=== PATIENT | female | born 1945 | race Caucasian/White ===

== ENCOUNTER 2023-03-05 11:26 | Observation (INO) | payer MEDICARE ==
[2023-03-05] MEDS ORDERED: SODIUM CHLORIDE 0.9% 1,000 ML IV STA (12:41)
[2023-03-05] MEDS ORDERED: LIDOCAINE 5% PATCH TOPICAL STA (12:43)
--- NOTE | 2023-03-05 13:00 | ED ---
General Adult HPI - General Chief complaint: Chest Pain Stated complaint: pain from ear to ribs on left side Time Seen by Provider: 03/05/23 12:13 Source: patient, family, RN notes reviewed, old records reviewed Mode of arrival: EMS Limitations: no limitations - History of Present Illness Initial comments: Patient is a 77-year-old female presents emergency Department complaining of chest pain for multiple weeks. Patient describes the pain as left-sided chest pain that is intermittent. Originally describes the pain as sharp and stabbing. States it is mostly over the left inferior rib. Worse on deep inspiration. However states that intermittently she'll also get left-sided chest pain that is associated with some left shoulder pain as well as left-sided neck pain. States this happens him was on a daily basis for the last 2-3 weeks. Originally attributed it to holding her phone and a weird angle multiple weeks ago but is uncertain if this is the cause. Does not follow up with her physician. Presents for further evaluation. Denies any history of cardiac disease. Denies any lower extremity edema. No lower extremity pain. No history of blood clots. Endorses shortness of breath but states it is because on deep expiration she does have left-sided chest pain on the rib in the anterior mid clavicular line inferiorly. Presents for further evaluation at this time. Denies any fevers, chills, cough, diaphoresis, nausea, vomiting, abdominal pain. - Related Data Home Medications Medication Instructions Recorded Confirmed No Known Home Medications 03/05/23 03/05/23 Allergies Allergy/AdvReac Type Severity Reaction Status Date / Time No Known Allergies Allergy Verified 03/05/23 13:00 Review of Systems ROS Statement: Those systems with pertinent positive or pertinent negative responses have been documented in the HPI. Review of Systems: CONST: Denies fever EYES: Denies blurry vision ENT: Denies nasal congestion C/V: Endorses chest pain/rib pain RESP: Denies shortness of breath GI: Denies abdominal pain : Denies dysuria SKIN: Denies rash. MSK: Denies joint pain. NEURO: Denies headache ROS Other: All systems not noted in ROS Statement are negative. Past Medical History Past Medical History: No Reported History History of Any Multi-Drug Resistant Organisms: None Reported Past Surgical History: No Surgical Hx Reported Past Psychological History: No Psychological Hx Reported Smoking Status: Never smoker Past Alcohol Use History: None Reported Past Drug Use History: None Reported General Exam - General Exam Comments Initial Comments: General: Appears in no acute distress. HEAD: Normal with no signs of head trauma. EYES: PERRLA, EOMI, conjunctiva normal, no discharge. ENT: Hearing grossly intact, normal oropharynx. RESPIRATORY: Clear breath sounds bilaterally. No wheezes, rales, or rhonchi. No hypoxia. No increased work of breathing. C/V: Regular rate and rhythm. S1 and S2 auscultated, no edema, peripheral pulses 2+ and intact throughout ABD: Abd is soft, nontender, nondistended EXT: Normal range of motion, no obvious deformity. Patient does have reproducible chest pain over the left inferior ribs in the midclavicular line. No obvious deformity. No flail chest. SKIN: No rashes or lesions observed on exposed skin. NEURO: Alert and oriented 4. Limitations: no limitations Course Vital Signs 03/05/23 03/05/23 03/05/23 12:07 12:29 12:55 Temperature 98.3 F Pulse Rate 74 71 68 Respiratory 18 16 17 Rate Blood Pressure 179/80 175/85 139/70 O2 Sat by Pulse 96 96 96 Oximetry Medical Decision Making - Medical Decision Making Was pt. sent in by a medical professional or institution (, PA, INSTRUCTOR KNITTING, urgent care, hospital, or shelter...) When possible be specific @ -No Did you speak to anyone other than the patient for history (EMS, parent, family, police, friend...)? What history was obtained from this source @ -No Did you review nursing and triage notes (agree or disagree)? Why? @ -I reviewed and agree with nursing and triage notes Were old charts reviewed (outside hosp., previous admission, EMS record, old EKG, old radiological studies, urgent care reports/EKG's, shelter records)? Report findings @ -Old charts reviewed. Differential Diagnosis (chest pain, altered mental status, abdominal pain women, abdominal pain men, vaginal bleeding, weakness, fever, dyspnea, syncope, headache, dizziness, GI bleed, back pain, seizure, CVA, palpatations, mental health, musculoskeletal)? @ -Differential Chest Pain: Stable Angina, Unstable Angina, STEMI, NSTEMI Aortic Dissection, Pneumothorax, Musculoskeletal, Esophageal Spasm GERD, Cholecystitis, Pancreatitis, Zoster, this is not meant to be an all-inclusive list. EKG interpreted by me (3pts min.). @ -As above X-rays interpreted by me (1pt min.). @ -Chest x-ray reveals possible mild pulmonary vascular congestion as well as atelectasis versus infiltrate in the left lower lobe. Favor atelectasis as she has no upper respiratory complaints. CT interpreted by me (1pt min.). @ -CT PE positive for bilateral pulmonary emboli in the lower lobes. No significant right heart strain. U/S interpreted by me (1pt. min.). @ -None done What testing was considered but not performed or refused? (CT, X-rays, U/S, labs)? Why? @ -None What meds were considered but not given or refused? Why? @ -None Did you discuss the management of the patient with other professionals (professionals i.e. , PA, INSTRUCTOR K[employer]ITTING, lab, RT, psych nurse, social media designer, timber estimator, teacher, project control officer, correctional casework specialist)? Give summary @ -Spoke with [facility] Who Was in Agreement with the Plan. Spoke with Dr. Hamilton who evaluated the patient at bedside and was in agreement with the plan. Was smoking cessation discussed for >3mins.? @ -No Was critical care preformed (if so, how long)? @ -yes, 35 m42 Were there social determinants of health that impacted care today? How? (Homelessness, low income, unemployed, alcoholism, drug addiction, transportation, low edu. Level, literacy, decrease access to med. care, long-term, rehab)? @ -No Was there de-escalation of care discussed even if they declined (Discuss DNR or withdrawal of care, Hospice)? DNR status @ -No What co-morbidities impacted this encounter? (DM, HTN, Smoking, COPD, CAD, Cancer, CVA, ARF, Chemo, Hep., AIDS, mental health diagnosis, sleep apnea, morbid obesity)? @ -None Was patient admitted / discharged? Hospital course, mention meds given and route, prescriptions, significant lab abnormalities, going to OR and other per tinent info. @ -Based on patient's presentation and physical exam, I'm concerned for cardiac etiology for her current symptoms. We will obtain cardiopulmonary labs. EKG and chest x-ray will also be obtained. Vital signs within acceptable limits. She is slightly hypertensive. She was in agreement this plan. Currently she does not have the chest, neck, shoulder pain but does have the rib pain. EKG showed no signs of ischemia.Chest x-ray shows possible left lower lobe pne umonia but it has no upper as well as her symptoms and therefore more likely to be atelectasis. Labs are remarkable for a BNP within normal limits for the patient's age, and undetectable troponin, an elevated d-dimer of 6. I updated the patient. Symptoms are unchanged. We will obtain a CT PE for her pleuritic chest pain. She was in agreement with this plan. CT PE positive for bilateral pulmonary emboli. After the patient. She started on heparin. No obvious evidence of right heart strain this time. Echo will be ordered. Patient is admitted to [facility]. I consulted pulmonology Dr. Hamilton and notified him of the consult. Echo and duplex is ordered. Spoke with Dr. squires who accepted the patient. Undiagnosed new problem with uncertain prognosis? @ -No Drug Therapy requiring intensive monitoring for toxicity (Heparin, Nitro, Insulin, Cardizem)? @ -Heparin Were any procedures done? @ -No Diagnosis/symptom? @ -Atypical pleuritic chest pain, bilateral PE Acute, or Chronic, or Acute on Chronic? @ -Acute Uncomplicated (without systemic symptoms) or Complicated (systemic symptoms)? @ -Complicated Side effects of treatment? @ -none Exacerbation, Progression, or Severe Exacerbation] @ -no Poses a threat to life or bodily function? @ -Yes - Lab Data Result diagrams: 03/05/23 12:52 03/05/23 12:52 Lab Results 03/05/23 03/05/23 03/05/23 Range/Units 12:52 12:52 12:52 WBC 6.6 (3.8-10.6) k/uL RBC 4.41 (3.80-5.40) m/uL Hgb 12.0 (11.4-16.0) gm/dL Hct 37.9 (34.0-46.0) % MCV 85.9 (80.0-100.0) fL MCH 27.3 (25.0-35.0) pg MCHC 31.7 (31.0-37.0) g/dL RDW 13.4 (11.5-15.5) % Plt Count 537 H (150-450) k/uL MPV 9.6 Neutrophils % 71 % Lymphocytes % 20 % Monocytes % 5 % Eosinophils % 2 % Basophils % 0 % Neutrophils # 4.7 (1.3-7.7) k/uL Lymphocytes # 1.3 (1.0-4.8) k/uL Monocytes # 0.3 (0-1.0) k/uL Eosinophils # 0.2 (0-0.7) k/uL Basophils # 0.0 (0-0.2) k/uL PT 10.3 (10.0-12.5) sec INR 0.9 (<1.2) APTT 23.3 (22.0-30.0) sec D-Dimer 6.79 H (<0.60) mg/L FEU Sodium 137 (137-145) mmol/L Potassium 4.5 (3.5-5.1) mmol/L Chloride 103 (98-107) mmol/L Carbon Dioxide 22 (22-30) mmol/L Anion Gap 12 mmol/L BUN 11 (7-17) mg/dL Creatinine 0.53 (0.52-1.04) mg/dL Est GFR (CKD-EPI)AfAm >90 (>60 ml/min/1.73 sqM) Est GFR (CKD-EPI)NonAf >90 (>60 ml/min/1.73 sqM) Glucose 87 (74-99) mg/dL Calcium 9.5 (8.4-10.2) mg/dL Magnesium 2.2 (1.6-2.3) mg/dL Total Bilirubin 0.5 (0.2-1.3) mg/dL AST 24 (14-36) U/L ALT 17 (4-34) U/L Alkaline Phosphatase 85 (38-126) U/L Troponin I (0.000-0.034) ng/mL NT-Pro-B Natriuret Pep 416 pg/mL Total Protein 6.8 (6.3-8.2) g/dL Albumin 3.9 (3.5-5.0) g/dL Lipase 99 (23-300) U/L 03/05/23 Range/Units 12:52 WBC (3.8-10.6) k/uL RBC (3.80-5.40) m/uL Hgb (11.4-16.0) gm/dL Hct (34.0-46.0) % MCV (80.0-100.0) fL MCH (25.0-35.0) pg MCHC (31.0-37.0) g/dL RDW (11.5-15.5) % Plt Count (150-450) k/uL MPV Neutrophils % % Lymphocytes % % Monocytes % % Eosinophils % % Basophils % % Neutrophils # (1.3-7.7) k/uL Lymphocytes # (1.0-4.8) k/uL Monocytes # (0-1.0) k/uL Eosinophils # (0-0.7) k/uL Basophils # (0-0.2) k/uL PT (10.0-12.5) sec INR (<1.2) APTT (22.0-30.0) sec D-Dimer (<0.60) mg/L FEU Sodium (137-145) mmol/L Potassium (3.5-5.1) mmol/L Chloride (98-107) mmol/L Carbon Dioxide (22-30) mmol/L Anion Gap mmol/L BUN (7-17) mg/dL Creatinine (0.52-1.04) mg/dL Est GFR (CKD-EPI)AfAm (>60 ml/min/1.73 sqM) Est GFR (CKD-EPI)NonAf (>60 ml/min/1.73 sqM) Glucose (74-99) mg/dL Calcium (8.4-10.2) mg/dL Magnesium (1.6-2.3) mg/dL Total Bilirubin (0.2-1.3) mg/dL AST (14-36) U/L ALT (4-34) U/L Alkaline Phosphatase (38-126) U/L Troponin I <0.012 (0.000-0.034) ng/mL NT-Pro-B Natriuret Pep pg/mL Total Protein (6.3-8.2) g/dL Albumin (3.5-5.0) g/dL Lipase (23-300) U/L - EKG Data -: EKG Interpreted by Me EKG Comments: 12-lead Electrocardiogram Interpretation Note EKG was reviewed and interpreted by myself. 12-lead ECG performed at 1205 is interpreted by me as revealing normal sinus rhythm at a rate of 68 beats per minute. [place] is normal. CA intervals 147 ms. QRS duration is 93 ms. QTC is 398 ms.. There were no ST or T wave abnormalities to suggest myocardial ischemia or injury. R wave progression across the precordium was satisfactory. By my interpretation this EKG is non-diagnostic for acute ischemia. Critical Care Time Critical Care Time: Yes Total Critical Care Time: 42 Disposition Clinical Impression: Pleuritic chest pain, Bilateral pulmonary embolism Disposition: ADMITTED IP TO THIS HOSP Condition: Serious Referrals: None,Stated [Primary Care Provider] - 1-2 days Time of Disposition: 15:01
[2023-03-05 13:06] LABS: Basophils % (A) 0 %; Eosinophils # (A) 0.2 k/uL (0-0.7); Eosinophils % (A) 2 %; HCT 37.9 % (34.0-46.0); Lymphocytes # (A) 1.3 k/uL (1.0-4.8); Lymphocytes % (A) 20 %; MCH 27.3 pg (25.0-35.0); MCHC 31.7 g/dL (31.0-37.0); MCV 85.9 fL (80.0-100.0); Mean Platelet Volume 9.6; Monocytes # (A) 0.3 k/uL (0-1.0); Monocytes % (A) 5 %; Neutrophils # (A) 4.7 k/uL (1.3-7.7); Neutrophils % (A) 71 %; Platelet Count 537 k/uL (150-450); RBC 4.41 m/uL (3.80-5.40); RDW 13.4 % (11.5-15.5); WBC 6.6 k/uL (3.8-10.6)
[2023-03-05 13:16] LABS: ALT 17 U/L (4-34); AST 24 U/L (14-36); African American GFR (CKD) >90 (>60 ml/min/1.73 sqM); Albumin 3.9 g/dL (3.5-5.0); Alkaline Phosphatase 85 U/L (38-126); Anion Gap 12 mmol/L; Blood Urea Nitrogen 11 mg/dL (7-17); Calcium 9.5 mg/dL (8.4-10.2); Carbon Dioxide 22 mmol/L (22-30); Chloride 103 mmol/L (98-107); Glucose 87 mg/dL (74-99); Lipase 99 U/L (23-300); Magnesium 2.2 mg/dL (1.6-2.3); Non-African American GFR(CKD) >90 (>60 ml/min/1.73 sqM); Potassium 4.5 mmol/L (3.5-5.1); Sodium 137 mmol/L (137-145); Total Bilirubin 0.5 mg/dL (0.2-1.3); Total Protein 6.8 g/dL (6.3-8.2)
[2023-03-05 13:25] LABS: NT-Pro-B-Type Natriuretic Pept 416 pg/mL
[2023-03-05 13:29] LABS: INR 0.9 (<1.2); Partial Thromboplastin Time 23.3 sec (22.0-30.0); Prothrombin Time 10.3 sec (10.0-12.5)
--- NOTE | 2023-03-05 13:45 | XR ---
EXAMINATION TYPE: XR chest 2V DATE OF EXAM: 03/05/2023 COMPARISON: NONE HISTORY: Shortness of breath TECHNIQUE: Frontal and lateral views of the chest are obtained. FINDINGS: Scattered senescent parenchymal changes noted. Hyperinflation compatible with COPD. No evidence for infiltrate. No evidence for atelectasis. Mild cardiomegaly with pulmonary venous congestion and tiny effusion suggested on the lateral project ion. Increased opacity left lower lobe laterally may reflect atelectasis or infiltrate. Mediastinal structures are stable and grossly unremarkable. No evidence for hilar prominence. Degenerative changes dorsal spine. IMPRESSION: 1. Mild cardiomegaly with pulmonary venous congestion and tiny effusion suggested on the lateral proj ection. Increased opacity left lower lobe laterally may reflect atelectasis or infiltrate.
[2023-03-05] MEDS ORDERED: HEPARIN SODIUM 1,000 UN/ML (10ML VL) IV ONE (14:48)
[2023-03-05] MEDS ORDERED: HEPARIN SODIUM 1,000 UN/ML (10ML VL) IV PRN (14:48)
--- NOTE | 2023-03-05 14:54 | CT ---
EXAMINATION TYPE: CT chest angio for PE CT DLP: 213.2 mGycm, Automated exposure control for dose reduction was used. DATE OF EXAM: 03/05/2023 2:43 PM COMPARISON: Chest radiograph from same day. . CLINICAL INDICATION:Female, 77 years old with history of eval for PE; pe shortness of breath. Elevate d d-dimer. TECHNIQUE/CONTRAST: CTA scan of the thorax is performed with IV Contrast, patient injected with 100 mL of Isovue 370, MIP images are created and reviewed these are created on a separate workstation.. FINDINGS: Pulmonary Artery: Filling defects within the left lower lobe 6 lobar and segmental and subsegmental b ranches. Additionally there are filling defects within the right lower lung pulmonary subsegmental br anches. The pulmonary trunk is dilated up to 3.5 cm. Mild reflux of contrast is seen within the IVC. Lungs/Pleura: No evidence of focal consolidation or pneumothorax. Trace bilateral pleural effusions. Convex opacities in the lung bases. Some consolidation in the left lung base. Airway: Large airways are patent. Heart: Heart is mildly enlarged for size. Vasculature: No evidence of aortic aneurysm. Moderate to large hiatal hernia. Mediastinum: No gross evidence of adenopathy. Musculoskeletal: No acute osseous abnormalities Soft Tissues: Unremarkable. Lower neck: No significant findings. Upper Abdomen: No significant findings. IMPRESSION: 1. Acute bilateral lower lobe pulmonary emboli. No evidence of right heart strain. Mild pulmonary hy pertension with reflux of contrast suggests may be minimal right heart strain. Correlate with serum m arkers. 2. Groundglass and consolidation changes in the lung bases particularly the lingula and left lower l obe correlate for superimposed infection. 3. Moderate to large hiatal hernia. 4. Trace bilateral pleural effusions. Findings communicated to Dr. Orlando Medrano MD on 03/05/2023 2:[address] Duy Faulkner.
[2023-03-05] MEDS ORDERED: HEPARIN SOD,PORK IN 0.45% NACL 25,000 UNIT in 0.45% NACL 1 250ML.BAG IV SCH (15:00)
[2023-03-05] MEDS ORDERED: NALOXONE 0.4 MG/ML 1 ML VIAL IV PRN (15:13)
[2023-03-05] MEDS ORDERED: ASPIRIN 81 MG PO STA (15:17)
[2023-03-05] MEDS: SODIUM CHLORIDE 0.9% 1,000 ML IV SCH (15:45)
--- NOTE | 2023-03-05 15:52 | US ---
EXAMINATION TYPE: US venous doppler duplex LE DATE OF EXAM: 03/05/2023 3:05 PM COMPARISON: NONE CLINICAL INDICATION: Female, 77 years old with history of chest pain x 2 weeks, PE seen on recent CT; SIDE PERFORMED: Bilateral TECHNIQUE: The lower extremity deep venous system is examined utilizing real time linear array sonog jennifer with graded compression, doppler sonography and color-flow sonography. VESSELS IMAGED: Common Femoral Vein Deep Femoral Vein Greater Saphenous Vein * Femoral Vein Popliteal Vein Small Saphenous Vein * Proximal Calf Veins (* superficial vessels) Right Leg: Negative for DVT Left Leg: Negative for DVT IMPRESSION: Grayscale, color doppler, spectral doppler imaging performed of the deep veins of the lo wer extremities. There is normal flow, compressibility, vascular waveforms.
--- NOTE | 2023-03-05 16:37 | P.HPIM ---
History of Present Illness H&P Date: 03/05/23 Patient is a 77-year-old female with no significant past medical history presenting with 2 weeks of bilateral lower rib pain. She claims that this started all of a sudden. Initially her pain was more pleuritic and sharp, and now it's mostly resolved. She denies any fevers, chills, abdominal pain, nausea, vomiting, urinary or bowel complaints. She does not see any physicians, and was prompted by her sister to come to the ER. She denies any any recent prolonged immobilization or travel history. She denies ever getting any outpatient malignancy screening. Her mother and her son also had history of DVT/PE. No close family history of cancer. In the ED, temperature was 98.3, pulse 74, respiratory rate 18, blood pressure 179/80, saturating at 96% on room air. WBC 6.6, hemoglobin 12, platelet 587, d- dimer 6.79, creatinine 0.53, troponin negative, proBNP 400. Chest x-ray independently interpreted shows left lower lobe opacity and interstitial opacities. EKG independently interpreted shows normal sinus rhythm. Chest CTA shows acute bilateral lower lobe pulmonary emboli with normal right heart strain. Left lower lobe consolidation consistent with possible infection. Moderate to large hiatal hernia. Trace bilateral pleural effusions. Pulmonology consulted. Patient being admitted for bilateral pulmonary emboli, on heparin drip. Case discussed with ED physician. Pertinent positives and negatives as discussed in HPI, a complete review of systems was performed and all other systems are negative. Patient seen and examined at bedside. Vital signs reviewed General: nontoxic, no distress, appears at stated age Derm: warm, dry Head: atraumatic, normocephalic, symmetric Eyes: EOMI, no lid lag, anicteric sclera, pupils equal round reactive to light ENT: Nose and ears atraumatic Neck: No thyromegaly, supple Mouth: no lip lesion, mucus membranes moist Cardiovascular: S1S2 reg, no murmur, no edema Lungs: clear to auscultation bilateral, no rhonchi, no rales, no wheeze, no accessory muscle use Abdominal: soft, nontender to palpation, no guarding, no appreciable organomegaly Ext: no gross muscle atrophy, muscle strength muscle strength 5 out of 5 in all 4 extremities, no contractures Neuro: CN II-XII grossly intact Psych: Alert, oriented, appropriate affect Assessment/Plan: Acute non-massive bilateral pulmonary emboli Uncontrolled hypertension -On heparin drip, monitor aPTT and any bleeding, daily CBC -On telemetry -Cardiology and pulmonology consulted -Lower extremity Dopplers negative for DVT -echocardiogram pending -Needs outpatient cancer screening -Needs to establish with a primary care physician -If she remains hypertensive, will start on oral antihypertensives. The patient is admitted with an anticipated greater than 2 midnight stay as inpatient status for evaluation of pulmonary emboli. Surrogate decision-maker: Son CODE STATUS: Full code DVT prophylaxis: Heparin drip Anticipated discharge date: Pending clinical course Anticipated discharge place: Pending clinical course A total of 65 minutes was spent on the care of this complex patient more than 50% of the time was spent in counseling and care coordination. Past Medical History Past Medical History: No Reported History History of Any Multi-Drug Resistant Organisms: None Reported Past Surgical History: No Surgical Hx Reported Past Anesthesia/Blood Transfusion Reactions: No Reported Reaction Past Psychological History: No Psychological Hx Reported Smoking Status: Never smoker Past Alcohol Use History: None Reported Past Drug Use History: None Reported - Past Family History Son(s) History Unknown: Yes Family Medical History: Deep Vein Thrombosis (DVT) Additional Family Medical History / Comment(s): "marker in blood that is genetic" Medications and Allergies Home Medications Medication Instructions Recorded Confirmed Type No Known Home Medications 03/05/23 03/05/23 History Allergies Allergy/AdvReac Type Severity Reaction Status Date / Time No Known Allergies Allergy Verified 03/05/23 13:00 Physical Exam Vitals: Vital Signs Temp Pulse Pulse Resp BP BP Pulse Ox 03/05/23 16:37 172/77 03/05/23 16:02 98 F 77 16 184/80 95 03/05/23 15:00 82 18 150/75 94 L 03/05/23 12:55 68 17 139/70 96 03/05/23 12:29 71 16 175/85 96 03/05/23 12:07 98.3 F 74 18 179/80 96 Intake and Output 03/05/23 03/05/23 03/05/23 06:59 14:59 22:59 Other: Weight 63.503 kg 63.503 kg Results CBC & Chem 7: 03/05/23 12:52 03/05/23 12:52 Labs: Abnormal Lab Results - Last 24 Hours (Table) 03/05/23 03/05/23 Range/Units 12:52 12:52 Plt Count 537 H (150-450) k/uL D-Dimer 6.79 H (<0.60) mg/L FEU Thrombosis Risk Factor Assmnt - Choose All That Apply Each Risk Factor Represents 3 Points: Age 75 years or older Thrombosis Risk Factor Assessment Total Risk Factor Score: 3 Thrombosis Risk Factor Assessment Level: Moderate Risk
--- NOTE | 2023-03-05 17:12 | P.CNPUL ---
History of Present Illness Consult date: 03/05/23 Reason for consult: pulmonary embolism History of present illness: 77-year-old female patient, presented to the emergency department with 2 week history of pleuritic left-sided chest pain. This was a of a sudden onset that has been ongoing for the past 2 weeks of progressive worsening. For that reason, she came into the emergency department. No hemoptysis. No syncope. No fever. No chills. No night sweats. In the emergency department, the patient was found to have a d-dimer of 6.7. Following that, check x-ray was done that showed some left lung opacity/interstitial. EKG was sinus. CT angiogram of the chest was done and showed bilateral lower lobe pulmonary embolism. No evidence of any RV strain. There is also a is a left lung consolidation probably related to an early infarction. The patient also had a moderate degree of hiatal hernia. The patient is hemodynamically stable. She is currently on oxygen at room air. No significant tachycardia. No hypotension. No swelling in lower extremities. No trips such as low trips or airplane trips. Her son has been diagnosed having a DVT and he has been also tested genetically and he has been diagnosed having an underlying hypercoagulable state. Nevertheless, the patient herself has never been count of any previous DVT or pulmonary embolism. She has not seen a physician for many years. She denies having any other medical problems. Ramon malignancy. No recent surgeries. She states that she is quite active. Review of Systems Constitutional: Reports as per HPI Eyes: denies as per HPI, denies blurred vision, denies bulging eye, denies decreased vision, denies diplopia, denies discharge, denies dry eye, denies irritation, denies itching, denies pain, denies photophobia, denies loss of peripheral vision, denies loss of vision, denies tunnel vision/blind spots Ears: deny: decreased hearing, ear discharge, earache, tinnitus Ears, nose, mouth and throat: Reports as per HPI Breasts: absent: as per HPI, change in shape, gynecomastia, masses, nipple discharge, pain, skin changes, swelling Cardiovascular: Reports chest pain Respiratory: Reports as per HPI, Reports pleurisy Gastrointestinal: Reports as per HPI Genitourinary: Reports as per HPI Menstruation: Reports as per HPI Musculoskeletal: Reports as per HPI Musculoskeletal: absent: ankle pain, ankle stiffness, ankle swelling Integumentary: Reports as per HPI Neurological: Reports as per HPI Psychiatric: Reports as per HPI Endocrine: Reports as per HPI Hematologic/Lymphatic: Reports as per HPI Allergic/Immunologic: Reports as per HPI Past Medical History Past Medical History: No Reported History History of Any Multi-Drug Resistant Organisms: None Reported Past Surgical History: No Surgical Hx Reported Past Anesthesia/Blood Transfusion Reactions: No Reported Reaction Past Psychological History: No Psychological Hx Reported Smoking Status: Never smoker Past Alcohol Use History: None Reported Past Drug Use History: None Reported - Past Family History Son(s) History Unknown: Yes Family Medical History: Deep Vein Thrombosis (DVT) Additional Family Medical History / Comment(s): "marker in blood that is gene tic" Medications and Allergies Home Medications Medication Instructions Recorded Confirmed Type No Known Home Medications 03/05/23 03/05/23 History Allergies Allergy/AdvReac Type Severity Reaction Status Date / Time No Known Allergies Allergy Verified 03/05/23 13:00 Physical Exam Vitals: Vital Signs Temp Pulse Pulse Resp BP BP Pulse Ox 03/05/23 16:37 172/77 03/05/23 16:02 98 F 77 16 184/80 95 03/05/23 15:00 82 18 150/75 94 L 03/05/23 12:55 68 17 139/70 96 03/05/23 12:29 71 16 175/85 96 03/05/23 12:07 98.3 F 74 18 179/80 96 Intake and Output 03/05/23 03/05/23 03/05/23 06:59 14:59 22:59 Other: Weight 63.503 kg 63.503 kg Gen. appearance the patient is calm and comfortable in no acute distress currently on room air oxygen The patient appeared well nourished and normally developed. Vital signs as documented. Head exam is unremarkable. No scleral icterus or corneal arcus noted. Neck is without jugular venous distension, thyromegaly, or carotid bruits. Carotid upstrokes are brisk bilaterally. Lungs are clear to auscultation and percussion. Cardiac exam reveals the PMI to be normally sized and situated. Rhythm is regular. First and second heart sounds normal. No murmurs, rubs or gallops. Abdominal exam reveals normal bowel sounds, no masses, no organomegaly and no aortic enlargement. Extremities are nonedematous and both femoral and pedal pulses are normal.Examination of the skin revealed no evidence of significant rashes, suspicious appearing nevi or other concerning lesions.Neurologically, the patient is awake and alert and the patient does not have any focal neurological deficit. Cranial nerves are essentially intact. Results - Laboratory Findings CBC and BMP: 03/05/23 12:52 03/05/23 12:52 PT/INR, D-dimer PT 10.3 sec (10.0-12.5) 03/05/23 12:52 INR 0.9 (<1.2) 03/05/23 12:52 D-Dimer 6.79 mg/L FEU (<0.60) H 03/05/23 12:52 Abnormal lab findings: Abnormal Labs 03/05/23 03/05/23 12:52 12:52 Plt Count 537 H D-Dimer 6.79 H - Diagnostic Findings Chest x-ray: image reviewed CT scan - chest: image reviewed Assessment and Plan Plan: acute unprovoked bilateral pulmonary embolism with signs of pulmonary infarct involving the left lung Acute pleuritic chest pain secondary to above Acute shortness of breath secondary to above Acute hypoxic respiratory failure and the patient currently is on room air oxygen with a pulse ox of 94% Sinus tachycardia secondary to above Family history of DVT and her son with questionable hypercoagulable state Plan Obtain Doppler of the lower extremities rule out DVT. Obtain echocardiogram to evaluate for RV strain. Hemodynamically stable.*The patient IV heparin. Will likely need a hypercoagulable evaluation at the later stage. The patient was quite hasn't to stay in the hospital. She wanted to leave the hospital and be treated on outpatient basis. I made it clear that this may be potentially life- threatening condition and I was able to convince her her staying in the hospital for further treatment. We'll continue to follow. No major RV strain pattern based on CAT scan criteria. Awaiting echocardiogram.
--- NOTE | 2023-03-05 20:46 | CA ---
Transthoracic Echo Report Name: Purnima Stephenson Age: 77 Gender: F : 1945 Exam Date: 03/05/2023 18:18 Exam Location: [place] [facility] Ht (in): 63 Wt (lb): 140 Ordering Physician: Orlando Medrano MD Attending/Referring Phys: [employer] Virginia Connors RDCS Procedure CPT: Indications: PE. Eval for right heart strain Cardiac Hx: Technical Quality: Fair Contrast 1: Total Dose (mL): Contrast 2: Total Dose (mL): MEASUREMENTS (Male / Female) Normal Values 2D ECHO LV Diastolic Diameter PLAX 3.3 cm 4.2 - 5.9 / 3.9 - 5.3 cm LV Systolic Diameter PLAX 1.8 cm IVS Diastolic Thickness 1.2 cm 0.6 - 1.0 / 0.6 - 0.9 cm LVPW Diastolic Thickness 1.2 cm 0.6 - 1.0 / 0.6 - 0.9 cm LV Relative Wall Thickness 0.7 RV Internal Dim ED PLAX 3.1 cm LA Volume 59.2 cm??? 18 - 58 / 22 - 52 cm??? LA Volume Index 35.0 cm???/m??? 16 - 28 cm???/m??? M-MODE Aortic Root Diameter MM 2.9 cm LA Systolic Diameter MM 4.5 cm LA Ao Ratio MM 1.5 AV Cusp Separation MM 1.9 cm DOPPLER AV Peak Velocity 201.6 cm/s AV Peak Gradient 16.3 mmHg AV Mean Velocity 132.0 cm/s AV Mean Gradient 8.0 mmHg AV Velocity Time Integral 36.9 cm LVOT Peak Velocity 155.7 cm/s LVOT Peak Gradient 9.7 mmHg LVOT Velocity Time Integral 31.2 cm MV Area PHT 2.9 cm??? Mitral E Point Velocity 120.0 cm/s Mitral A Point Velocity 120.9 cm/s Mitral E to A Ratio 1.0 MV Deceleration Time 262.7 ms MV E' Velocity 10.0 cm/s Mitral E to MV E' Ratio 12.1 TR Peak Velocity 313.8 cm/s TR Peak Gradient 39.4 mmHg Right Ventricular Systolic Press 42.6 mmHg FINDINGS Left Ventricle Mildly increased left ventricular wall thickness. Normal left ventricular systolic function with no obvious regional wall motion abnormalities. Left ventricular cavity size normal. Left ventricular ejection fraction is estimated at 55-60 %. Right Ventricle Normal right ventricular size and function. Mild pulmonary hypertension. No Right heart strain was noted. TAPSE is 26 mm, S' is 17cm/sec. Right Atrium Normal right atrial size. Left Atrium Mildly increased left atrial volume. Mildly increased left atrial area. Mitral Valve Structurally normal mitral valve. No mitral stenosis. Trace to mild mitral regurgitation. Aortic Valve Trileaflet aortic valve. No aortic valve stenosis or regurgitation. Tricuspid Valve Structurally normal tricuspid valve. [id number] tricuspid regurgitation. Pulmonic Valve Structurally normal pulmonic valve. Trace pulmonic regurgitation. Pericardium No pericardial effusion. Aorta Normal size aortic root and proximal ascending aorta. CONCLUSIONS Left ventricular ejection fraction is estimated at 55-60 %. No obvious regional wall motion abnormalities. Mild asymmetrical septal hypertrophy Normal RV size and systolic function. RVSP estimated at 42 mmHg Mild left atrial dilatation Moderate tricuspid regurgitation and trace pulmonic regurgitation No other prior echocardiogram to compare in synapse database Previewed by: Dr Ming Weldon (Electronically Signed) Final Date: 05 March 2023 20:45
[2023-03-06 07:25] VITALS: TEMP 98.2
[2023-03-06] MEDS: SODIUM CHLORIDE 0.9% 1,000 ML IV SCH (07:55)
[2023-03-06 09:42] LABS: Basophils % (A) 1 %; Eosinophils # (A) 0.2 k/uL (0-0.7); Eosinophils % (A) 4 %; HCT 38.6 % (34.0-46.0); HGB 12.4 gm/dL (11.4-16.0); Hypochromasia Slight; Lymphocytes # (A) 1.5 k/uL (1.0-4.8); Lymphocytes % (A) 26 %; MCV 87.4 fL (80.0-100.0); Mean Platelet Volume 8.7; Monocytes # (A) 0.3 k/uL (0-1.0); Monocytes % (A) 5 %; Neutrophils # (A) 3.7 k/uL (1.3-7.7); Neutrophils % (A) 63 %; Platelet Count 538 k/uL (150-450); RBC 4.42 m/uL (3.80-5.40); RDW 13.5 % (11.5-15.5); WBC 5.9 k/uL (3.8-10.6)
[2023-03-06 10:30] LABS: African American GFR (CKD) >90 (>60 ml/min/1.73 sqM); Anion Gap 10 mmol/L; Blood Urea Nitrogen 9 mg/dL (7-17); Calcium 9.1 mg/dL (8.4-10.2); Carbon Dioxide 22 mmol/L (22-30); Chloride 108 mmol/L (98-107); Glucose 106 mg/dL (74-99); Non-African American GFR(CKD) 89 (>60 ml/min/1.73 sqM); Potassium 4.3 mmol/L (3.5-5.1); Sodium 140 mmol/L (137-145)
[2023-03-06] MEDS ORDERED: Apixaban Initiation Dose--VTE 5 MG TAB PO SCH (11:30)
--- NOTE | 2023-03-06 11:30 | P.CRDCN ---
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 [facility] patient states that she has developed with no past medical history. Patient states that she developed difficulty in breathing especially at nighttime when laying down. She also developed a shooting-type sharp pain in her chest going on for the past 2 weeks. She states that it's in her ribs not inside her chest. She denies any recent injury. Patient is a nonsmoker no alcohol use. She is a family history of DVTs and pulmonary embolism in both parents and brother as well as his son. We have been asked to evaluate the patient for chest pain and PE. Patient has been started on a heparin drip. EKG CTA of the chest reveals acute bilateral lower lobe pulmonary emboli. No evide nce of right heart strain. Mild pulmonary hypertension with reflux of contrast suggests minimal right heart strain. Groundglass and consolidation changes in the lung bases particularly in the lingula and left lower lobe correlate for superimposed infection. Moderate to large pericardial hernia. Trace bilateral pleural effusions. CBC reveals platelet count of 500 3008 otherwise unremarkable. D-dimer was 6.79. Troponin negative 3. Electrolytes renal function normal. Magnesium 2.2. Liver function test normal. ProBNP 416. Lipase 99. Echocardiogram reveals EF of 55-60%, mild asymmetrical septal hypertrophy. RVSP 42 mmHg. Moderate tricuspid regurgitation and trace pulmonic regurgitation. Home cardiac medications: none Review Of Systems: At the time of my evaluation: Constitutional: No fever, no chills. No weakness, fatigue or lethargy. EENT: No headache. No dizziness. Lungs: Reports shortness of breath, cough, no sputum production. No wheezing. Cardiovascular: Reports chest pain, no lower extremity edema. No palpitations. No paroxysmal nocturnal dyspnea. No orthopnea. No lightheadedness or dizziness. No syncopal episodes. Abdominal: No abdominal pain. No nausea, vomiting. No diarrhea. No constipation. No bloody or tarry stools. Genitourinary: No dysuria.. No urinary retention. Musculoskeletal: No myalgias. No muscle weakness, no frequent falls. No back pain. No neck pain. Integumentary: No wounds. No rash. No unusual bruising. Neurologic: No aphasia. No facial droop. No change in mentation. No head injury. No headache. Physical examination: Gen: This is a 77-year-old female. She is resting on the edge of the bed and appears comfortable and in no acute distress. VS: reviewed HEENT: Head is atraumatic, normocephalic. Pupils equal, round. Sclerae is anicteric. NECK: Supple. No JVD. . LUNGS: Clear to auscultation. No wheezes or rhonchi. No intercostal retractions. HEART: Regular rate and rhythm. No murmur. ABDOMEN: Soft No tenderness. EXTREMITIES: No pedal edema. No calf tenderness. NEUROLOGICAL: Patient is awake, alert and oriented x3. Assessment: Bilateral pulmonary emboli Minimal right heart strain Chest pain, acute coronary syndrome ruled out, most likely secondary to pulmonary emboli Plan: Patient may be transitioned to oral anticoagulation. No further workup at this time Patient is cleared for discharge home Thank you kindly for this consultation. Nurse practitioner note has been reviewed, I agree with documented findings and plan of care. Patient was seen and examined.History of present illness: Past Medical History Past Medical History: No Reported History History of Any Multi-Drug Resistant Organisms: None Reported Past Surgical History: No Surgical Hx Reported Past Anesthesia/Blood Transfusion Reactions: No Reported Reaction Past Psychological History: No Psychological Hx Reported Smoking Status: Never smoker Past Alcohol Use History: None Reported Past Drug Use History: None Reported - Past Family History Son(s) History Unknown: Yes Family Medical History: Deep Vein Thrombosis (DVT) Additional Family Medical History / Comment(s): "marker in blood that is genetic" Medications and Allergies Home Medications Medication Instructions Recorded Confirmed Type No Known Home Medications 03/05/23 03/05/23 History Allergies Allergy/AdvReac Type Severity Reaction Status Date / Time No Known Allergies Allergy Verified 03/05/23 13:00 Physical Exam Vitals: Vital Signs Temp Pulse Pulse Resp BP BP Pulse Ox 03/06/23 08:00 98.2 F 59 L 16 137/74 95 03/06/23 04:00 61 18 147/80 97 03/06/23 00:00 98.2 F 82 18 144/74 96 03/05/23 20:00 82 16 134/60 95 03/05/23 16:37 172/77 03/05/23 16:02 98 F 77 16 184/80 95 03/05/23 15:00 82 18 150/75 94 L 03/05/23 12:55 68 17 139/70 96 03/05/23 12:29 71 16 175/85 96 03/05/23 12:07 98.3 F 74 18 179/80 96 Intake and Output 03/05/23 03/06/23 03/06/23 22:59 06:59 14:59 Intake Total 118 118 Balance 118 118 Intake: Oral 118 118 Other: Voiding Method Toilet Toilet Toilet # Voids 1 2 Weight 63.503 kg Results 03/06/23 09:23 03/06/23 09:23 Cardiac Enzymes 03/05/23 03/05/23 03/05/23 Range/Units 12:52 12:52 20:47 AST 24 (14-36) U/L Troponin I <0.012 <0.012 (0.000-0.034) ng/mL 03/05/23 Range/Units 23:13 AST (14-36) U/L Troponin I <0.012 (0.000-0.034) ng/mL Coagulation 03/05/23 03/05/23 Range/Units 12:52 20:47 PT 10.3 (10.0-12.5) sec APTT 23.3 57.8 H (22.0-30.0) sec CBC 03/05/23 Range/Units 12:52 WBC 6.6 (3.8-10.6) k/uL RBC 4.41 (3.80-5.40) m/uL Hgb 12.0 (11.4-16.0) gm/dL Hct 37.9 (34.0-46.0) % Plt Count 537 H (150-450) k/uL Comprehensive Metabolic Panel 03/05/23 Range/Units 12:52 Sodium 137 (137-145) mmol/L Potassium 4.5 (3.5-5.1) mmol/L Chloride 103 (98-107) mmol/L Carbon Dioxide 22 (22-30) mmol/L BUN 11 (7-17) mg/dL Creatinine 0.53 (0.52-1.04) mg/dL Glucose 87 (74-99) mg/dL Calcium 9.5 (8.4-10.2) mg/dL AST 24 (14-36) U/L ALT 17 (4-34) U/L Alkaline Phosphatase 85 (38-126) U/L Total Protein 6.8 (6.3-8.2) g/dL Albumin 3.9 (3.5-5.0) g/dL Current Medications Generic Name Dose Route Start Last Admin Trade Name Freq PRN Reason Stop Dose Admin Heparin Sodium (Porcine) 0 unit 03/05/23 14:48 Heparin Sodium 1,000 Un/Ml (10ml Vl) IV PER PROTOCOL PRN Low PTT Protocol Heparin Sodium/Sodium Chloride 250 mls @ 11.431 mls/hr 03/05/23 15:00 03/05/23 15:22 25,000 unit/ Sodium Chloride IV 18 units/kg/hr .[id number] KHURRAM 11.431 mls/hr Administration Protocol 18 UNITS/KG/HR Sodium Chloride 1,000 mls @ 75 mls/hr 03/05/23 15:15 03/06/23 07:55 Saline 0.9% IV Not Given .[id number] KHURRAM Naloxone HCl 0.2 mg 03/05/23 15:13 Naloxone 0.4 Mg/Ml 1 Ml Vial IV Q2M PRN Opioid Reversal Intake and Output 03/05/23 03/06/23 03/06/23 22:59 06:59 14:59 Intake Total 118 118 Balance 118 118 Intake: Oral 118 118 Other: Voiding Method Toilet Toilet Toilet # Voids 1 2 Weight 63.503 kg 03/05/23 12:52 03/05/23 12:52
--- NOTE | 2023-03-06 11:55 | P.DS ---
Providers Date of admission: 03/05/23 15:13 Expected date of discharge: 03/06/23 Attending physician: Pepe Mckeon MD Consults: 03/05/23 14:54 Consult Physician Urgent Consulting Provider: Toy Hamilton Consult Reason/Comments: PE Do you want consulting provider notified?: Yes 03/05/23 15:12 Consult Physician Routine Consulting Provider: [facility] Consult Reason/Comments: chest pain, PE Do you want consulting provider notified?: Yes Primary care physician: Stated None Hospital Course: Discharge Diagnosis: Acute non-massive bilateral pulmonary emboli Uncontrolled hypertension Hospital Course: 77-year-old female with no significant past medical history presenting with 2 weeks of bilateral lower rib pain. In the ED, temperature was 98.3, pulse 74, respiratory rate 18, blood pressure 179/80, saturating at 96% on room air. WBC 6.6, hemoglobin 12, platelet 587, d-dimer 6.79, creatinine 0.53, troponin negative, proBNP 400. Chest x-ray independently interpreted shows left lower lobe opacity and interstitial opacities. EKG independently interpreted shows normal sinus rhythm. Chest CTA shows acute bilateral lower lobe pulmonary em boli with normal right heart strain. Left lower lobe consolidation consistent with possible infection. Moderate to large hiatal hernia. Trace bilateral pleural effusions. Pulmonology consulted. Patient being admitted for bilateral pulmonary emboli, on heparin drip. Echocardiogram did not show any RV strain, lower extremity Dopplers do not show any DVT. Patient does not follow a PCP. She needs outpatient screening for malignancies. She has not had any mammogram, colonoscopy or cervical cancer screening in the past. Being discharged on Eliquis. Patient seen and examined at bedside. Vital signs reviewed and stable. General: nontoxic, no distress, appears at stated age Derm: warm, dry Head: atraumatic, normocephalic, symmetric Eyes: EOMI, no lid lag, anicteric sclera Mouth: no lip lesion, mucus membranes moist Cardiovascular: S1S2 reg, no murmur Lungs: CTA bilateral, no rhonchi, no rales , no accessory muscle use Abdominal: soft, nontender to palpation, no guarding, no appreciable organomegaly Ext: no gross muscle atrophy, no edema, no contractures Neuro: CN II-XI grossly intact, no focal neuro deficits Psych: Alert, oriented, appropriate affect A total of 36 minutes of time were spent preparing this complex discharge summary. Patient was discharged on 03/06/23 at 11:45. Patient Condition at Discharge: Stable Plan - Discharge Summary Discharge Rx Participant: No New Discharge Prescriptions: New Apixaban [Eliquis Starter Pack (for VTE)] 5 - 10 mg PO DIRECTED 30 Days #1 each Discharge Medication List Apixaban [Eliquis Starter Pack (for VTE)] 5 - 10 mg PO DIRECTED 30 Days #1 each 03/06/23 [Rx] Follow up Appointment(s)/Referral(s): None,Stated [Primary Care Provider] - 1-2 days Patient Instructions/Handouts: Pulmonary Embolism (DC) Activity/Diet/Wound Care/Special Instructions: Please see a PCP. You will need screening for common cancers. Discharge Disposition: HOME SELF-CARE
[2023-03-06 12:26] VITALS: BP 117/61; PULSE 79; RESP 17
--- NOTE | 2023-03-06 15:19 | P.PN ---
Subjective Progress Note Date: 03/06/23 77-year-old female patient, presented to the emergency department with 2 week history of pleuritic left-sided chest pain. This was a of a sudden onset that has been ongoing for the past 2 weeks of progressive worsening. For that reason, she came into the emergency department. No hemoptysis. No syncope. No fever. No chills. No night sweats. In the emergency department, the patient was found to have a d-dimer of 6.7. Following that, check x-ray was done that showed some left lung opacity/interstitial. EKG was sinus. CT angiogram of the chest was done and showed bilateral lower lobe pulmonary embolism. No evidence of any RV strain. There is also a is a left lung consolidation probably related to an early infarction. The patient also had a moderate degree of hiatal hernia. The patient is hemodynamically stable. She is currently on oxygen at room air. No significant tachycardia. No hypotension. No swelling in lower extremities. No trips such as low trips or airplane trips. Her son has been diagnosed having a DVT and he has been also tested genetically and he has been diagnosed having an underlying hypercoagulable state. Nevertheless, the patient herself has never been count of any previous DVT or pulmonary embolism. She has not seen a physician for many years. She denies having any other medical problems. Ramon malignancy. No recent surgeries. She states that she is quite active. On today's evaluation of 03/06/2023, the patient is doing well. No specific co mplaints. Hemodynamically stable. Echo regarding that was done and there is no significant pulmonary hypertension. Hemodynamically stable. Troponins are negative. The patient remains on IV heparin. I'm going to transition her to enter [facility] with Eliis and the patient can be potentially discharged home today as the patient wants to go home [facility]. I think it's reasonable. She has remained hemodynamically stable. She continues to have some pleuritic chest pain on the left that needs to be monitored. She will have a follow-up chest x- ray the week time. Objective - Vital Signs Vital signs: Vital Signs Temp 98.2 F 03/06/23 08:00 Pulse 59 L 03/06/23 08:00 Resp 16 03/06/23 08:00 BP 137/74 03/06/23 08:00 Pulse Ox 94 L 03/06/23 10:09 FiO2 Intake & Output 03/05/23 03/06/23 03/06/23 18:59 06:59 18:59 Intake Total 118 118 Balance 118 118 Weight 63.503 kg Intake: Oral 118 118 Other: Voiding Method Toilet Toilet Toilet # Voids 1 2 - Exam Gen. appearance the patient is calm and comfortable in no acute distress c urrently on room air oxygen The patient appeared well nourished and normally developed. Vital signs as documented. Head exam is unremarkable. No scleral icterus or corneal arcus no leonides. Neck is without jugular venous distension, thyromegaly, or carotid bruits. Carotid upstrokes are brisk bilaterally. Lungs are clear to auscultation and percussion. Cardiac exam reveals the PMI to be normally sized and situated. Rhythm is regular. First and second heart sounds normal. No murmurs, rubs or gallops. Abdominal exam reveals normal bowel sounds, no masses, no organomegaly and no aortic enlargement. Extremities are nonedematous and both femoral and pedal pulses are normal.Examination of the skin revealed no evidence of significant rashes, suspicious appearing nevi or other concerning lesions.Neurologically, the patient is awake and alert and the patient does not have any focal neurological deficit. Cranial nerves are essentially intact. - Labs CBC & Chem 7: 03/06/23 09:03/06/23 09:23 Labs: Abnormal Lab Results - Last 24 Hours (Table) 03/05/23 03/05/23 03/05/23 Range/Units 12:52 12:52 20:47 Plt Count 537 H (150-450) k/uL APTT 57.8 H (22.0-30.0) sec D-Dimer 6.79 H (<0.60) mg/L FEU Chloride (98-107) mmol/L Glucose (74-99) mg/dL 03/06/23 03/06/23 03/06/23 Range/Units 09:23 09:23 09:23 Plt Count 538 H (150-450) k/uL APTT 55.8 H (22.0-30.0) sec D-Dimer (<0.60) mg/L FEU Chloride 108 H (98-107) mmol/L Glucose 106 H (74-99) mg/dL Assessment and Plan Plan: acute unprovoked bilateral pulmonary embolism with signs of pulmonary infarct involving the left lung, clinically stable and hemodynamically stable Acute pleuritic chest pain secondary to above, improved not completely recovered Acute shortness of breath secondary to above, improved Acute hypoxic respiratory failure and the patient currently is on room air oxygen with a pulse ox of 94%, no issues with oxygenation at this point in time Sinus tachycardia secondary to above, improved Family history of DVT and her son with questionable hypercoagulable state Plan No signs of any RV strain. This is based on the echocardiogram and based on the CAT scan findings and the troponins are negative Start IV heparin subcu patient on anticoagulation with Eliquis per protocol Follow-up chest x-ray and the leak time Hypercoagulable workup later on an outpatient basis Patient is for discharge
== END 2023-03-06 13:33 | disposition home or self-care (01) ==
LOC: EC 11:26 → 3SCARD 15:13 → INTOOBSV 15:13 → 3SCARD 15:25 → UNDODISIN 03-06 13:33
PROVIDERS: ADMIT Student in an Organized Health Care Education/Training Program; ATTEND Student in an Organized Health Care Education/Training Program
DX: I26.99 Other pulmonary embolism without acute cor pulmonale (principal); J96.01 Acute respiratory failure with hypoxia; I10 Essential (primary) hypertension; Z83.2 Family history of diseases of the blood and blood-forming organs and certain disorders involving the immune mechanism
CPT/HCPCS: 96374; 99291; 36415; 94760; 93005; 93306; 85379; 83880; 80053; 80048; 83690; 83735; 84484; 85025 ×2; 85610; 85730 ×2; 71046; 93970; 71275; G0378 ×2; J1644 ×2; Q9967; 96365

== ENCOUNTER → 2024-03-09 | Outpatient (CLI) | payer MEDICARE ==
[2024-03-09 16:37] LABS: % Iron Saturation 10.95 (12.00-45.00)
[2024-03-09 17:17] LABS: Basophils # (A) 0.07 X 10*3/uL (0.00-0.10); Basophils % (A) 1.4 %; Eosinophils # (A) 0.07 X 10*3/uL (0.04-0.35); Eosinophils % (A) 1.4 %; HCT 40.8 % (37.2-46.3); HGB 12.7 g/dL (12.0-15.0); Lymphocytes % (A) 23.5 %; MCH 26.4 pg (27.0-32.0); MCHC 31.1 g/dL (32.0-37.0); MCV 84.8 FL (80.0-97.0); Mean Platelet Volume 12.4 FL (9.5-12.2); Monocytes # (A) 0.41 X 10*3/uL (0.20-1.00); NRBC Per 100 WBC 0 X 10*3/uL (0.00-0.01); Neutrophils # (A) 3.34 X 10*3/uL (1.80-7.70); Neutrophils % (A) 65.5 %; Platelet Count 368 X 10*3/uL (140-440); RBC 4.81 X 10*6/uL (4.10-5.20); RDW 19.1 % (11.5-14.5)
[2024-03-09 21:02] LABS: Cardiolipin Ab IgG Interp Negative (Negative); Cardiolipin Ab IgM Interp Negative (Negative); Cardiolipin IgA Antibody <2.0 U/mL; Cardiolipin IgM Antibody 1.5 U/mL
[2024-03-10 12:03] LABS: Anti-Thrombin III Antigen 99 % (80 - 120)
[2024-03-10 13:44] LABS: APTT 34 Sec(s) (<43); Dilute Russell Viper Venom 33 Sec(s) (<44)
[2024-03-11 11:14] LABS: Prothrombin 20210A Mutation Negative
== END | disposition home or self-care (01) ==
LOC: LABWHC1 10:27
PROVIDERS: ATTEND Internal Medicine Critical Care Medicine
CPT/HCPCS: 36415; 81240; 81241; 83540; 83550; 85025; 85301; 85303; 85306; 85613; 85730; 86147